=== PATIENT | male | born 1955 | race Caucasian/White ===

== ENCOUNTER 2017-01-16 21:16 | Emergency (ER) | payer SELFPAY ==
[~2017-01-16 21:16] MED LIST: ACET500CAP PO; ADVIL PO; CIP5 PO; FLOMAX4 PO; GLUCOPHAGE1000 MG PO; GLUCPH PO; MEVACOR40 MG PO; PRILOSEC40 MG PO; PRIN10 PO; PRIN20 PO
== END 2017-01-16 23:42 | disposition home or self-care (01) ==
LOC: ER 21:16
DX: N45.1 Epididymitis (principal); N43.3 Hydrocele, unspecified; I10 Essential (primary) hypertension; Z79.899 Other long term (current) drug therapy
CPT/HCPCS: 76870; 99284; A9270-GY